=== PATIENT | female | born 1995 | race Caucasian/White ===

== ENCOUNTER → 2022-11-24 | Outpatient (REF) | payer OTHER | LOC: M LAB REF 17:55 | PROVIDERS: ATTEND Physician Assistant | DX: Z12.4 Encounter for screening for malignant neoplasm of cervix (principal); Z11.3 Encounter for screening for infections with a predominantly sexual mode of transmission ==

== ENCOUNTER 2023-08-04 13:25 | Day surgery (SDC) | payer OTHER ==
[~2023-08-04] VITALS: Ht 152.4 cm; Wt 77.9 kg
[2023-08-04] MEDS ORDERED: LEXA1TAB PO (13:36)
[2023-08-04] MEDS ORDERED: TRI-TAB16 PO (13:36)
[2023-08-04] MEDS ORDERED: ONDANSETRON 4MG 2ML VIAL IV ONE (14:25)
[2023-08-04] MEDS ORDERED: MORPHINE 4 MG/ML 1ML VIAL IV ONE (14:25)
[2023-08-04] MEDS ORDERED: NS 1,000 ML IV ONE (14:25)
[2023-08-04 14:31] LABS: BASO # 0.1 10^3/uL (0.0-0.2); BASO % 0.3 % (0.0-1.0); EOS # 0.3 10^3/uL (0.0-0.5); EOS % 1.8 % (0.0-3.0); HEMATOCRIT 37.9 % (36.0-47.0); HEMOGLOBIN 12.5 g/dl (12.0-15.5); LYMPH % 10.9 % (24.0-44.0); MEAN CORPUSCULAR HEMOGLOBIN 28.8 pg (27.0-33.0); MEAN CORPUSCULAR VOLUME 87.3 fl (80.0-96.0); MONO # 1.1 10^3/uL (0.0-0.8); MONO % 5.9 % (2.0-8.0); NEUTROPHILS # 14.7 10^3/uL (1.5-8.5); NEUTROPHILS % 80.6 % (36.0-66.0); RED BLOOD COUNT 4.34 10^6/uL (4.00-5.40); WHITE BLOOD COUNT 18.2 10^3/uL (4.0-10.0)
[2023-08-04] MEDS ORDERED: ISOVUE-370 76% 100ML VIAL As Ordered ONE (14:34)
[2023-08-04 14:59] LABS: ALKALINE PHOSPHATASE 99 U/L (46-116); ALT/SGPT 92 U/L (7.0-40); AST/SGOT 68 U/L (<34); BILIRUBIN,DIRECT < 0.1 MG/DL (<0.4); BILIRUBIN,TOTAL 0.3 MG/DL (0.3-1.2); BLOOD UREA NITROGEN 10 MG/DL (9-23); CALCIUM LEVEL 8.8 MG/DL (8.5-10.1); CARBON DIOXIDE LEVEL 22 MMOL/L (20-31); CHLORIDE LEVEL 107 MMOL/L (98-107); GLOMERULAR FILTRATION RATE > 60.0 (>60); GLUCOSE, FASTING 78 MG/DL (60-100); LIPASE 43 U/L (12-53); POTASSIUM SERUM 5.1 MMOL/L (3.5-5.1); SODIUM LEVEL 138 MMOL/L (136-145)
[2023-08-04 15:04] LABS: HCG, SERUM QUALITATIVE NEGATIVE (NEGATIVE)
[2023-08-04] MEDS ORDERED: PIPERACILLIN/TAZOBACTAM SOD 4.5 GM in D5W MINI-BAG PLUS 50 ML IV ONE (15:50)
[2023-08-04] MEDS ORDERED: HOME MED LIST COMPLETE! XX SCH (16:30)
[2023-08-04] MEDS ORDERED: fentaNYL 100 MCG/2 ML INJECTION As Ordered ONE (17:11)
[2023-08-04] MEDS ORDERED: MIDAZOLAM INJ 2MG/2ML VIAL As Ordered ONE (17:11)
[2023-08-04] MEDS ORDERED: propofoL 200 MG/20 ML VIAL As Ordered ONE (17:12)
[2023-08-04] MEDS ORDERED: LIDOCAINE 2% 100MG/5ML SDV (FOR ANES.) As Ordered ONE (17:12)
[2023-08-04] MEDS ORDERED: ONDANSETRON 4MG 2ML VIAL As Ordered ONE (17:13)
[2023-08-04] MEDS ORDERED: ROCURONIUM BROMIDE 50MG/5ML VIAL As Ordered ONE (17:13)
[2023-08-04] MEDS ORDERED: KETOROLAC 60MG 2ML VIAL As Ordered ONE (17:13)
[2023-08-04] MEDS ORDERED: LR 1,000 ML IV SCH (18:15)
[2023-08-04] MEDS ORDERED: ONDANSETRON 4MG 2ML VIAL IV PRN ×2 (18:15→19:30)
[2023-08-04] MEDS ORDERED: fentaNYL 100 MCG/2 ML INJECTION IV PRN (18:15)
[2023-08-04] MEDS ORDERED: oxyCODONE 5MG TAB PO PRN (18:15)
[2023-08-04] MEDS ORDERED: ACETAMINOPHEN 1000MG 100ML IV BAG As Ordered ONE (18:45)
[2023-08-04] MEDS ORDERED: SUGAMMADEX SODIUM 500 MG/5 ML VIAL (BRIDION) As Ordered ONE (19:05)
[2023-08-04] MEDS ORDERED: KETOROLAC 30 MG/ML 1ML VIAL IV PRN (19:30)
[2023-08-04] MEDS ORDERED: NORCO, ANEXSIA 5/325MG TABLET (HYDROcodone/ACETAMINOPHEN) PO PRN (19:30)
[2023-08-04 20:30] VITALS: BP 123/80; TEMP 97.7; O2SAT 97
[2023-08-04] MEDS: NS 1,000 ML IV SCH (20:39)
[2023-08-04 21:00] VITALS: BP 134/81; TEMP 96.8; O2SAT 97
[2023-08-04 21:30] VITALS: BP 140/91; TEMP 97.3; O2SAT 100
[2023-08-04] MEDS: SENOKOT S TAB PO SCH (21:30)
[2023-08-04 22:34] VITALS: BP 159/92; TEMP 98.1; O2SAT 99
[2023-08-04] MEDS: PIPERACILLIN/TAZOBACTAM SOD 3.375 GM in D5W MINI-BAG PLUS 50 ML IV SCH (23:34)
[2023-08-04 23:38] VITALS: BP 131/78; TEMP 98.6; O2SAT 97
[2023-08-05 00:49] VITALS: BP 132/89; TEMP 98.1; O2SAT 8
[2023-08-05 01:52] VITALS: BP 119/69; TEMP 98.1; O2SAT 97
[2023-08-05 04:39] VITALS: BP 124/71; TEMP 97.9; O2SAT 99
[2023-08-05] MEDS: NS 1,000 ML IV SCH (04:41)
[2023-08-05] MEDS: PIPERACILLIN/TAZOBACTAM SOD 3.375 GM in D5W MINI-BAG PLUS 50 ML IV SCH ×2 (05:34→10:14)
[2023-08-05 06:49] LABS: BASO % 0.1 % (0.0-1.0); EOS % 0.1 % (0.0-3.0); HEMATOCRIT 34.9 % (36.0-47.0); HEMOGLOBIN 11.8 g/dl (12.0-15.5); LYMPH # 0.9 10^3/uL (1.5-5.0); LYMPH % 8.9 % (24.0-44.0); MEAN CORPUSCULAR HEMOGLOBIN 29.1 pg (27.0-33.0); MEAN CORPUSCULAR HGB CONC 33.8 g/dl (32.0-36.5); MEAN CORPUSCULAR VOLUME 86.2 fl (80.0-96.0); MONO # 0.2 10^3/uL (0.0-0.8); MONO % 1.8 % (2.0-8.0); NEUTROPHILS # 9.3 10^3/uL (1.5-8.5); NEUTROPHILS % 88.6 % (36.0-66.0); PLATELET COUNT, AUTOMATED 425 10^3/uL (150-450); RED BLOOD COUNT 4.05 10^6/uL (4.00-5.40); WHITE BLOOD COUNT 10.5 10^3/uL (4.0-10.0)
[2023-08-05 08:00] VITALS: BP 126/77; TEMP 97.9; O2SAT 98
[2023-08-05] MEDS: SENOKOT S TAB PO SCH (08:22)
[2023-08-05] MEDS ORDERED: PANTOPRAZOLE 40MG VIAL IV SCH (09:00)
[2023-08-05] MEDS ORDERED: ESCITALOPRAM OXALATE 10 MG TAB (LEXAPRO) PO SCH (09:00)
[2023-08-05] MEDS ORDERED: AMOX875T2 PO (10:34)
[2023-08-05] MEDS ORDERED: HYDR-3715 PO (10:35)
== END 2023-08-05 11:45 | disposition home or self-care (01) ==
LOC: M ED 13:25 → M SDC 15:52 → M PED 20:26 → M SDC 08-05 11:45
PROVIDERS: ATTEND Surgery
DX: K63.89 Other specified diseases of intestine (principal); F41.9 Anxiety disorder, unspecified
CPT/HCPCS: 36415; 49320; 80048; 80076; 81001; 83690; 84703; 85025; 87635; 96361; 96365; 96366; 96375; 99284; C9113; J0131; J0665; J1100; J1885; J2250; J2405; J2543; J3010; Q9967

== ENCOUNTER 2023-09-13 11:13 | Day surgery (SDC) | payer OTHER ==
[~2023-09-13] VITALS: Ht 152.4 cm; Wt 78.7 kg
[~2023-09-13 11:13] MED LIST: AMOX875T2 PO; HYDR-3715 PO; LEXA1TAB PO; TRI-TAB16 PO
[2023-09-13] MEDS: NS 1,000 ML IV ONE (11:33)
[2023-09-13] MEDS ORDERED: propofoL 200 MG/20 ML VIAL As Ordered ONE (13:16)
[2023-09-13 13:31] VITALS: TEMP 96.8
[2023-09-13 13:50] VITALS: BP 111/57; O2SAT 100
== END 2023-09-13 13:59 | disposition home or self-care (01) ==
LOC: M OPP 11:13
PROVIDERS: ATTEND Surgery
DX: K63.3 Ulcer of intestine (principal); K92.2 Gastrointestinal hemorrhage, unspecified; K64.1 Second degree hemorrhoids; K63.89 Other specified diseases of intestine; Z79.899 Other long term (current) drug therapy

== ENCOUNTER 2023-10-31 22:25 | Emergency (ER) | payer OTHER ==
[~2023-10-31] VITALS: Ht 152.4 cm; Wt 79.9 kg
[2023-11-01 02:13] LABS: BASO # 0.1 10^3/uL (0.0-0.2); BASO % 0.4 % (0.0-1.0); EOS # 0.6 10^3/uL (0.0-0.5); EOS % 4.5 % (0.0-3.0); HEMATOCRIT 37.1 % (36.0-47.0); HEMOGLOBIN 12.3 g/dl (12.0-15.5); LYMPH # 2.6 10^3/uL (1.5-5.0); LYMPH % 20.7 % (24.0-44.0); MEAN CORPUSCULAR HEMOGLOBIN 29.6 pg (27.0-33.0); MEAN CORPUSCULAR HGB CONC 33.2 g/dl (32.0-36.5); MEAN CORPUSCULAR VOLUME 89.4 fl (80.0-96.0); MONO # 0.9 10^3/uL (0.0-0.8); MONO % 7.6 % (2.0-8.0); NEUTROPHILS # 8.2 10^3/uL (1.5-8.5); NEUTROPHILS % 66.5 % (36.0-66.0); PLATELET COUNT, AUTOMATED 384 10^3/uL (150-450); RED BLOOD COUNT 4.15 10^6/uL (4.00-5.40); WHITE BLOOD COUNT 12.4 10^3/uL (4.0-10.0)
[2023-11-01 02:31] LABS: LIPASE 38 U/L (12-53)
[2023-11-01 02:33] LABS: ALBUMIN 2.8 G/DL (3.2-5.2); ALKALINE PHOSPHATASE 56 U/L (46-116); ALT/SGPT 13 U/L (7.0-40); AST/SGOT 15 U/L (<34); BILIRUBIN,DIRECT < 0.1 MG/DL (<0.4); BILIRUBIN,TOTAL 0.2 MG/DL (0.3-1.2); BLOOD UREA NITROGEN 15 MG/DL (9-23); CARBON DIOXIDE LEVEL 24 MMOL/L (20-31); CHLORIDE LEVEL 106 MMOL/L (98-107); CREATININE FOR GFR 0.68 MG/DL (0.55-1.30); GLOMERULAR FILTRATION RATE > 60.0 (>60); GLUCOSE, FASTING 91 MG/DL (60-100); POTASSIUM SERUM 4.2 MMOL/L (3.5-5.1); SODIUM LEVEL 136 MMOL/L (136-145); TOTAL PROTEIN 6.5 G/DL (5.7-8.2)
[2023-11-01 02:37] LABS: HCG, SERUM QUALITATIVE NEGATIVE (NEGATIVE)
[2023-11-01] MEDS: IBUPROFEN 600MG TAB PO ONE (06:58)
[2023-11-01] MEDS: GASTROGRAFIN SOLUTION 30ML PO SCH (08:36)
[2023-11-01] MEDS ORDERED: ISOVUE-370 76% 100ML VIAL As Ordered ONE (09:27)
[2023-11-01] MEDS ORDERED: HOME MED LIST COMPLETE! XX SCH (11:15)
[2023-11-01 11:44] VITALS: BP 122/76; TEMP 97.8; O2SAT 99
== END 2023-11-01 11:46 | disposition home or self-care (01) ==
LOC: M ED 22:25
DX: R10.9 Unspecified abdominal pain (principal); F32.A Depression, unspecified; Z79.899 Other long term (current) drug therapy
CPT/HCPCS: 36415; 74177; 80048; 80076; 81001; 83690; 84703; 85025; 86140; 87086; 99284; Q9963; Q9967

== ENCOUNTER → 2023-12-15 | Outpatient (REF) | payer OTHER ==
[2023-12-15 11:36] LABS: BASO # 0.1 10^3/uL (0.0-0.2); BASO % 0.9 % (0.0-1.0); EOS # 0.7 10^3/uL (0.0-0.5); EOS % 7.4 % (0.0-3.0); HEMATOCRIT 40.4 % (36.0-47.0); HEMOGLOBIN 13.1 g/dl (12.0-15.5); LYMPH # 1.7 10^3/uL (1.5-5.0); LYMPH % 18.2 % (24.0-44.0); MEAN CORPUSCULAR HEMOGLOBIN 28.6 pg (27.0-33.0); MEAN CORPUSCULAR HGB CONC 32.4 g/dl (32.0-36.5); MEAN CORPUSCULAR VOLUME 88.2 fl (80.0-96.0); MONO # 0.7 10^3/uL (0.0-0.8); MONO % 7.6 % (2.0-8.0); NEUTROPHILS # 6.1 10^3/uL (1.5-8.5); NEUTROPHILS % 65.2 % (36.0-66.0); PLATELET COUNT, AUTOMATED 457 10^3/uL (150-450); RED BLOOD COUNT 4.58 10^6/uL (4.00-5.40); WHITE BLOOD COUNT 9.3 10^3/uL (4.0-10.0)
[2023-12-15 11:53] LABS: ERYTHROCYTE SEDIMENTATION RATE 48 mm/hr (0-20)
[2023-12-15 12:06] LABS: ALBUMIN 2.9 G/DL (3.2-5.2); ALKALINE PHOSPHATASE 90 U/L (46-116); ALT/SGPT 47 U/L (7.0-40); AST/SGOT 14 U/L (<34); BILIRUBIN,TOTAL 0.2 MG/DL (0.3-1.2); BLOOD UREA NITROGEN 15 MG/DL (9-23); CALCIUM LEVEL 8.8 MG/DL (8.5-10.1); CARBON DIOXIDE LEVEL 26 MMOL/L (20-31); CHLORIDE LEVEL 107 MMOL/L (98-107); GLOMERULAR FILTRATION RATE > 60.0 (>60); GLUCOSE, FASTING 80 MG/DL (60-100); POTASSIUM SERUM 4.2 MMOL/L (3.5-5.1); SODIUM LEVEL 138 MMOL/L (136-145); TOTAL PROTEIN 6.7 G/DL (5.7-8.2)
[2023-12-15 12:08] LABS: VITAMIN B12 LEVEL 373 PG/ML (211-911)
== END ==
LOC: M LABDRAWC 10:43
PROVIDERS: ATTEND Internal Medicine Gastroenterology
DX: K50.818 Crohn's disease of both small and large intestine with other complication (principal)

== ENCOUNTER → 2024-02-01 | Outpatient (REF) | payer OTHER | LOC: M LABDRAWC 11:41 | PROVIDERS: ATTEND Internal Medicine Gastroenterology | DX: K50.818 Crohn's disease of both small and large intestine with other complication (principal) ==

== ENCOUNTER → 2024-02-05 | Outpatient (REF) | payer OTHER ==
[2024-02-07 14:22] LABS: QuantiFERON-TB Gold Plus NEGATIVE (NEGATIVE)
== END ==
LOC: M LABDRAWC 10:33
PROVIDERS: ATTEND Internal Medicine Gastroenterology
DX: K50.818 Crohn's disease of both small and large intestine with other complication (principal)

== ENCOUNTER 2024-03-25 13:26 | Emergency (ER) | payer OTHER ==
[~2024-03-25] VITALS: Ht 152.4 cm; Wt 86.9 kg
[2024-03-25 15:13] LABS: BASO % 0.4 % (0.0-1.0); EOS # 0.3 10^3/uL (0.0-0.5); EOS % 3.2 % (0.0-3.0); HEMATOCRIT 38.2 % (36.0-47.0); HEMOGLOBIN 12.6 g/dl (12.0-15.5); LYMPH # 2.1 10^3/uL (1.5-5.0); LYMPH % 23.2 % (24.0-44.0); MEAN CORPUSCULAR HEMOGLOBIN 29.3 pg (27.0-33.0); MEAN CORPUSCULAR VOLUME 88.8 fl (80.0-96.0); MONO # 0.8 10^3/uL (0.0-0.8); MONO % 9.1 % (2.0-8.0); NEUTROPHILS # 5.7 10^3/uL (1.5-8.5); NEUTROPHILS % 63.8 % (36.0-66.0); PLATELET COUNT, AUTOMATED 433 10^3/uL (150-450)
[2024-03-25 15:49] LABS: LIPASE 30 U/L (12-53)
[2024-03-25 15:51] LABS: ALBUMIN 3.2 G/DL (3.2-5.2); ALKALINE PHOSPHATASE 66 U/L (46-116); ALT/SGPT 15 U/L (7.0-40); AST/SGOT 9 U/L (<34); BILIRUBIN,DIRECT < 0.1 MG/DL (<0.4); BILIRUBIN,TOTAL 0.2 MG/DL (0.3-1.2); BLOOD UREA NITROGEN 11 MG/DL (9-23); CARBON DIOXIDE LEVEL 28 MMOL/L (20-31); CHLORIDE LEVEL 106 MMOL/L (98-107); CREATININE FOR GFR 0.69 MG/DL (0.55-1.30); GLOMERULAR FILTRATION RATE > 60.0 (>60); GLUCOSE, FASTING 91 MG/DL (60-100); POTASSIUM SERUM 4.3 MMOL/L (3.5-5.1); SODIUM LEVEL 138 MMOL/L (136-145); TOTAL PROTEIN 6.7 G/DL (5.7-8.2)
[2024-03-25 17:07] LABS: HCG, SERUM QUALITATIVE NEGATIVE (NEGATIVE)
[2024-03-25 18:21] VITALS: BP 130/79; TEMP 97.7; O2SAT 98
[2024-03-25] MEDS ORDERED: PRED10TA2 PO (19:21)
[2024-03-25] MEDS: methylPREDNISolone 125MG 2ML VIAL IV ONE (19:32)
== END 2024-03-25 19:36 | disposition home or self-care (01) ==
LOC: M ED 13:26
DX: K50.918 Crohn's disease, unspecified, with other complication (principal); F41.9 Anxiety disorder, unspecified; Z79.52 Long term (current) use of systemic steroids; Z79.899 Other long term (current) drug therapy
CPT/HCPCS: 74021; 76856; 80048; 80076; 81001; 83690; 84703; 85025; 87088; 87186; 93976; 96374; 99283; J2919

== ENCOUNTER 2024-05-02 15:17 | Emergency (ER) | payer OTHER ==
[~2024-05-02] VITALS: Ht 152.4 cm; Wt 86.8 kg
[~2024-05-02 15:17] MED LIST changes: +PRED10TA2 PO
[2024-05-02] MEDS ORDERED: LEXA1TAB2 (15:27)
[2024-05-02] MEDS ORDERED: HUMI40IN2 (15:27)
[2024-05-02 16:39] LABS: BASO # 0.1 10^3/uL (0.0-0.2); BASO % 0.3 % (0.0-1.0); EOS % 0.2 % (0.0-3.0); HEMATOCRIT 36.9 % (36.0-47.0); HEMOGLOBIN 12.1 g/dl (12.0-15.5); LYMPH % 5.7 % (24.0-44.0); MEAN CORPUSCULAR HEMOGLOBIN 28.3 pg (27.0-33.0); MEAN CORPUSCULAR HGB CONC 32.8 g/dl (32.0-36.5); MEAN CORPUSCULAR VOLUME 86.2 fl (80.0-96.0); MONO # 1.2 10^3/uL (0.0-0.8); MONO % 6.8 % (2.0-8.0); NEUTROPHILS # 15.7 10^3/uL (1.5-8.5); NEUTROPHILS % 86.3 % (36.0-66.0); PLATELET COUNT, AUTOMATED 461 10^3/uL (150-450); RED BLOOD COUNT 4.28 10^6/uL (4.00-5.40); WHITE BLOOD COUNT 18.2 10^3/uL (4.0-10.0)
[2024-05-02 17:09] LABS: ALKALINE PHOSPHATASE 76 U/L (46-116); ALT/SGPT 14 U/L (7.0-40); AST/SGOT 24 U/L (<34); BILIRUBIN,DIRECT 0.1 MG/DL (<0.4); BILIRUBIN,TOTAL 0.6 MG/DL (0.3-1.2); HCG, SERUM QUALITATIVE NEGATIVE (NEGATIVE); LIPASE 30 U/L (12-53)
[2024-05-02] MEDS ORDERED: ISOVUE-370 76% 100ML VIAL As Ordered ONE (17:37)
[2024-05-02] MEDS: ONDANSETRON 4MG 2ML VIAL IV ONE (17:50)
[2024-05-02] MEDS: MORPHINE 4 MG/ML 1ML VIAL IV ONE (17:51)
[2024-05-02] MEDS: NS 1,000 ML IV ONE (21:20)
[2024-05-02] MEDS: ADV IV ONE (21:25)
[2024-05-02] MEDS: KETOROLAC 30 MG/ML 1ML VIAL IV ONE (21:25)
[2024-05-02] MEDS: MINI IV ONE (21:25)
[2024-05-02] MEDS: PIPERACILLIN IV ONE (21:25)
[2024-05-02] MEDS: DEXTROSE 5% IV ONE (21:25)
[2024-05-02] MEDS: TAZOBACTAM SOD IV ONE (21:25)
[2024-05-02 23:50] VITALS: BP 127/69; TEMP 99.1; O2SAT 99
== END 2024-05-02 23:55 | disposition short-term general hospital (02) ==
LOC: M ED 15:17
DX: K50.018 Crohn's disease of small intestine with other complication (principal); N28.1 Cyst of kidney, acquired; F41.9 Anxiety disorder, unspecified; F32.A Depression, unspecified; Z79.899 Other long term (current) drug therapy
CPT/HCPCS: 36415; 74177; 80047; 80076; 81001; 83605; 83690; 84703; 85025; 85652; 86140; 87040; 96361; 96374; 96375; 99284; J1885; J2405; J2543; Q9967

== ENCOUNTER 2024-10-14 07:13 | Outpatient (CLI) | payer OTHER ==
[~2024-10-14] VITALS: Ht 152.4 cm; Wt 95.5 kg
[~2024-10-14 07:13] MED LIST changes: +HUMI40IN2; +LEXA1TAB2
[2024-10-14 07:50] VITALS: BP 133/82; O2SAT 96
[2024-10-14] MEDS: VEDOLIZUMAB 300 MG in NS 250 ML IV ONE (08:40)
[2024-10-14 09:45] VITALS: BP 127/77; O2SAT 98
== END 2024-10-14 10:05 ==
LOC: M INFU 07:13
PROVIDERS: ATTEND Internal Medicine Gastroenterology
DX: K50.90 Crohn's disease, unspecified, without complications (principal)
CPT/HCPCS: 96365; J3380

== ENCOUNTER 2024-10-28 07:38 | Outpatient (CLI) | payer OTHER ==
[~2024-10-28] VITALS: Ht 152.4 cm; Wt 94.0 kg
[2024-10-28 08:00] VITALS: BP 124/74; O2SAT 98
[2024-10-28] MEDS: VEDOLIZUMAB 300 MG in NS 250 ML IV ONE (08:23)
[2024-10-28 08:59] VITALS: BP 158/83; O2SAT 99
== END 2024-10-28 09:00 ==
LOC: M INFU 07:38
PROVIDERS: ATTEND Internal Medicine Gastroenterology
DX: K50.90 Crohn's disease, unspecified, without complications (principal)
CPT/HCPCS: 96365; J3380

== ENCOUNTER 2024-11-06 18:17 | Emergency (ER) | payer OTHER ==
[~2024-11-06] VITALS: Ht 152.4 cm; Wt 94.7 kg
[2024-11-06 20:30] LABS: BASO % 0.3 % (0.0-1.0); EOS # 0.1 10^3/uL (0.0-0.5); EOS % 0.4 % (0.0-3.0); HEMATOCRIT 39.4 % (36.0-47.0); LYMPH # 1.4 10^3/uL (1.5-5.0); LYMPH % 9.3 % (24.0-44.0); MEAN CORPUSCULAR HEMOGLOBIN 28.1 pg (27.0-33.0); MEAN CORPUSCULAR VOLUME 85.1 fl (80.0-96.0); MONO # 0.5 10^3/uL (0.0-0.8); MONO % 3.2 % (2.0-8.0); NEUTROPHILS # 12.7 10^3/uL (1.5-8.5); NEUTROPHILS % 86.5 % (36.0-66.0); PLATELET COUNT, AUTOMATED 434 10^3/uL (150-450); RED BLOOD COUNT 4.63 10^6/uL (4.00-5.40); WHITE BLOOD COUNT 14.7 10^3/uL (4.0-10.0)
[2024-11-06 20:59] LABS: LIPASE 39 U/L (12-53)
[2024-11-06 21:01] LABS: ALBUMIN 3.6 G/DL (3.2-5.2); ALKALINE PHOSPHATASE 71 U/L (35-104); ALT/SGPT 21 U/L (7.0-40); AST/SGOT 16 U/L (<34); BILIRUBIN,DIRECT < 0.1 MG/DL (<0.4); BILIRUBIN,TOTAL 0.2 MG/DL (0.3-1.2); BLOOD UREA NITROGEN 13 MG/DL (9-23); CARBON DIOXIDE LEVEL 26 MMOL/L (20-31); CHLORIDE LEVEL 104 MMOL/L (98-107); CREATININE FOR GFR 0.58 MG/DL (0.55-1.30); GLOMERULAR FILTRATION RATE > 90.0 (>60); GLUCOSE, FASTING 117 MG/DL (60-100); POTASSIUM SERUM 4.6 MMOL/L (3.5-5.1); SODIUM LEVEL 138 MMOL/L (136-145); TOTAL PROTEIN 7.7 G/DL (5.7-8.2)
[2024-11-06 21:08] VITALS: BP 135/89; TEMP 97.5; O2SAT 98
[2024-11-06 21:08] LABS: HCG, SERUM QUALITATIVE NEGATIVE (NEGATIVE)
== END 2024-11-06 22:21 | disposition left against medical advice (07) ==
LOC: M ED 18:17
DX: Z53.21 Procedure and treatment not carried out due to patient leaving prior to being seen by health care provider (principal)

== ENCOUNTER 2025-01-31 16:29 | Outpatient (CLI) | payer OTHER ==
[~2025-01-31] VITALS: Ht 152.4 cm; Wt 94.8 kg
[2025-01-31 17:18] VITALS: BP 137/83; O2SAT 98
[2025-01-31] MEDS: VEDOLIZUMAB 300 MG in NS 250 ML IV ONE (17:37)
[2025-01-31 18:20] VITALS: BP 138/78; O2SAT 100
== END 2025-01-31 18:20 ==
LOC: M INFU 16:29
PROVIDERS: ATTEND Internal Medicine Gastroenterology
DX: K50.90 Crohn's disease, unspecified, without complications (principal)
CPT/HCPCS: 96365; J3380

== ENCOUNTER 2025-03-28 15:00 | Outpatient (CLI) | payer OTHER ==
[~2025-03-28] VITALS: Ht 152.4 cm; Wt 94.5 kg
[2025-03-28 16:42] VITALS: BP 142/88; TEMP 97.4; O2SAT 96
[2025-03-28] MEDS: VEDOLIZUMAB 300 MG in NS 250 ML IV ONE (17:01)
[2025-03-28 17:29] VITALS: BP 127/81; O2SAT 99
== END 2025-03-28 17:35 | disposition home or self-care (01) ==
LOC: M INFU 15:00
PROVIDERS: ATTEND Internal Medicine Gastroenterology
DX: K50.90 Crohn's disease, unspecified, without complications (principal)
CPT/HCPCS: 96365; J3380

== ENCOUNTER → 2025-05-14 | Outpatient (CLI) | payer OTHER ==
[2025-05-14 19:09] LABS: BASO # 0.1 10^3/uL (0.0-0.2); BASO % 0.5 % (0.0-1.0); EOS # 0.3 10^3/uL (0.0-0.5); EOS % 3.0 % (0.0-3.0); LYMPH # 2.0 10^3/uL (1.5-5.0); LYMPH % 18.9 % (24.0-44.0); MONO # 0.7 10^3/uL (0.0-0.8); MONO % 6.5 % (2.0-8.0); NEUTROPHILS # 7.4 10^3/uL (1.5-8.5); NEUTROPHILS % 70.6 % (36.0-66.0); PLATELET COUNT, AUTOMATED 494 10^3/uL (150-450)
[2025-05-14 19:23] LABS: ESTIMATED AVERAGE GLUCOSE 108.0 MG/DL (60-110)
[2025-05-14 19:35] LABS: ALT/SGPT 11 U/L (7.0-40); AST/SGOT 12 U/L (<34); CALCIUM LEVEL 9.2 MG/DL (8.5-10.1); CARBON DIOXIDE LEVEL 23 MMOL/L (20-31); CHLORIDE LEVEL 105 MMOL/L (98-107); CHOLESTEROL LEVEL 243 MG/DL (<200); CHOLESTEROL RISK RATIO 4.48 (<5); CREATININE FOR GFR 0.65 MG/DL (0.55-1.30); GLOMERULAR FILTRATION RATE > 90.0 (>60); LDL CHOLESTEROL 158.2 MG/DL (<100); NON-HDL-C 188.8 MG/DL; POTASSIUM SERUM 4.5 MMOL/L (3.5-5.1); SODIUM LEVEL 138 MMOL/L (136-145); TRIGLYCERIDES LEVEL 153 MG/DL (<150)
[2025-05-14 19:39] LABS: TOTAL 25(OH) VITAMIN D 24.4 NG/ML (20.0-100.0)
[2025-05-14 19:43] LABS: HEPATITIS B SURFACE ANTIBODY POSITIVE (POSITIVE)
== END ==
LOC: M LABDRAWC 09:59
PROVIDERS: ATTEND Nurse Practitioner Family
DX: E66.813 Obesity, class 3 (principal); Z68.41 Body mass index [BMI] 40.0-44.9, adult; Z78.9 Other specified health status

== ENCOUNTER 2025-05-23 16:20 | Outpatient (CLI) | payer OTHER ==
[~2025-05-23] VITALS: Ht 152.4 cm; Wt 95.5 kg
[2025-05-23 16:30] VITALS: BP 139/91; O2SAT 97
[2025-05-23] MEDS: VEDOLIZUMAB 300 MG in NS 250 ML IV ONE (16:57)
[2025-05-23 17:32] VITALS: BP 151/84; O2SAT 97
== END 2025-05-23 17:37 | disposition home or self-care (01) ==
LOC: M INFU 16:20
PROVIDERS: ATTEND Internal Medicine Gastroenterology
DX: K50.818 Crohn's disease of both small and large intestine with other complication (principal)
CPT/HCPCS: 96365; J3380